=== PATIENT | male | born 1950 | race Hispanic/Latino ===

== ENCOUNTER 2017-04-28 09:48 | Emergency (ER) | payer OTHER ==
[2017-04-28] MEDS ORDERED: ASPIRIN PO ONE (10:08)
[2017-04-28 10:26] LABS: Basophils % (Auto) 0.6 % (0.0-1.8); Eosinophils # (Auto) 0.2 K/mm3 (0.0-0.4); Hematocrit 42.8 % (35.5-45.6); Hemoglobin 14.4 gm/dl (11.8-15.2); Lymphocytes # (Auto) 2.3 K/mm3 (1.2-5.4); Lymphocytes % (Auto) 28.1 % (13.4-35.0); Mean Corpuscular HGB Conc 34 % (32-34); Mean Corpuscular Hemoglobin 30 pg (28-32); Mean Corpuscular Volume 88 fl (84-94); Monocytes # (Auto) 0.6 K/mm3 (0.0-0.8); Monocytes % (Auto) 7.2 % (0.0-7.3); Platelet Count 252 K/mm3 (140-440); Red Blood Count 4.88 M/mm3 (3.65-5.03); Red Cell Distribution Width 14.2 % (13.2-15.2)
--- NOTE | 2017-04-28 10:35 | XRay Report ---
Chest 2 views: History: Shortness of breath. Findings: Normal cardiomediastinal silhouette. Trachea is midline. No consolidation, pneumothorax or pleural effusion. Impression: No acute cardiopulmonary findings.
[2017-04-28 10:50] LABS: Alanine Aminotransferase 27 units/L (7-56); Albumin 4.1 g/dL (3.9-5); BUN/Creatinine Ratio 23; Blood Urea Nitrogen 23 mg/dL (9-20); Calcium 9.3 mg/dL (8.4-10.2); Hemolysis Index 6
[2017-04-28 11:04] LABS: INR 0.89 (0.87-1.13)
[2017-04-28 11:05] LABS: Partial Thromboplastin Time 26.6 Sec. (24.2-36.6)
[2017-04-28] MEDS ORDERED: ATIVAN IV ONE (11:52)
--- NOTE | 2017-04-28 11:57 | Emergency Department Report ---
ED General Adult HPI - General Chief complaint: Chest Pain Stated complaint: CHEST PAIN Time Seen by Provider: 04/28/17 11:11 Source: patient Mode of arrival: Ambulatory Limitations: No Limitations - History of Present Illness Initial comments: Patient presents to emergency department via private vehicle with his daughter and . The patient began to travel from [facility] yesterday and stopped in [facility] overnight to rest. Patient states upon awakening this morning he had sinus congestion along with some tingling of the left side of his face. He also complained of being thirsty as well as having some left upper quadrant abdominal pain. Patient denies isauro chest pain. He says currently he does not have any shortness of breath. -: Gradual Location: head Radiation: non-radiation Severity scale (0 -10): 2 Quality: other (N/A) Consistency: now resolved Improves with: other (N/A) Associated Symptoms: denies other symptoms Treatments Prior to Arrival: Aspirin (650mg) - Related Data Allergies Allergy/AdvReac Type Severity Reaction Status Date / Time bacitracin Allergy Rash Verified 04/28/17 10:02 [From Neosporin ([id number])] neomycin Allergy Rash Verified 04/28/17 10:02 [From Neosporin ([id number])] Penicillins Allergy Unknown Verified 04/28/17 10:02 polymyxin B Allergy Rash Verified 04/28/17 10:02 [From Neosporin ([id number])] ED Review of Systems ROS: Stated complaint: CHEST PAIN Other details as noted in HPI Constitutional: denies: chills, fever Eyes: denies: eye pain, eye discharge, vision change ENT: denies: ear pain, throat pain Respiratory: denies: cough, shortness of breath, wheezing Cardiovascular: denies: chest pain, palpitations Endocrine: no symptoms reported Gastrointestinal: denies: abdominal pain, nausea, diarrhea Genitourinary: denies: urgency, dysuria Musculoskeletal: denies: back pain, joint swelling, arthralgia Skin: denies: rash, lesions Neurological: denies: headache, weakness, paresthesias Psychiatric: denies: anxiety, depression Hematological/Lymphatic: denies: easy bleeding, easy bruising ED Past Medical Hx - Past Medical History Previous Medical History?: Yes Hx of Cancer: Yes (left kidney, colon) Additional medical history: Bronchitis - Surgical History Past Surgical History?: Yes Hx Cholecystectomy: Yes Additional Surgical History: colon resection x 2, Spleenectomy - Social History Smoking Status: Former Smoker Substance Use Type: Alcohol, Prescribed ED Physical Exam - General Limitations: No Limitations General appearance: alert, in no apparent distress - Head Head exam: Present: atraumatic, normocephalic - Eye Eye exam: Present: normal appearance - ENT ENT exam: Present: mucous membranes moist, other (no tenderness to maxillary and frontal sinuses. Transillumination of the frontal sinuses does not show any fluid levels) - Expanded ENT Exam Expanded Throat exam: Positive: normal inspection - Neck Neck exam: Present: normal inspection - Respiratory Respiratory exam: Present: normal lung sounds bilaterally. Absent: respiratory distress - Cardiovascular Cardiovascular Exam: Present: regular rate, normal rhythm. Absent: systolic murmur, diastolic murmur, rubs, gallop - GI/Abdominal GI/Abdominal exam: Present: soft, normal bowel sounds - Rectal Rectal exam: Present: deferred - Extremities Exam Extremities exam: Present: normal inspection - Back Exam Back exam: Present: normal inspection - Neurological Exam Neurological exam: Present: alert, oriented X3 - Psychiatric Psychiatric exam: Present: normal affect, normal mood - Skin Skin exam: Present: warm, dry, intact, normal color. Absent: rash ED Course Vital Signs 04/28/17 04/28/17 04/28/17 10:03 11:00 11:15 Temperature 98.6 F Pulse Rate 90 92 H 88 Respiratory 20 14 12 Rate Blood Pressure 143/78 148/79 148/79 O2 Sat by Pulse 97 97 98 Oximetry 04/28/17 04/28/17 04/28/17 11:30 11:45 12:00 Temperature Pulse Rate 91 H 87 87 Respiratory 11 L 14 14 Rate Blood Pressure 146/89 146/89 150/87 O2 Sat by Pulse 95 95 Oximetry 04/28/17 04/28/17 04/28/17 12:15 12:31 13:00 Temperature Pulse Rate 97 H 90 97 H Respiratory 18 16 16 Rate Blood Pressure 150/87 150/87 132/75 O2 Sat by Pulse 98 97 Oximetry 04/28/17 04/28/17 04/28/17 13:15 13:30 13:45 Temperature Pulse Rate 96 H 94 H 87 Respiratory 15 14 15 Rate Blood Pressure 149/80 160/92 160/92 O2 Sat by Pulse 94 98 93 Oximetry 04/28/17 14:00 Temperature Pulse Rate 84 Respiratory 13 Rate Blood Pressure 140/85 O2 Sat by Pulse 96 Oximetry ED Medical Decision Making - Lab Data Result diagrams: 04/28/17 10:11 04/28/17 10:11 - EKG Data -: EKG Interpreted by Me EKG shows normal: sinus rhythm Rate: normal (93 bpm) - EKG Data Interpretation: no acute changes Critical care attestation.: If time is entered above; I have spent that time in minutes in the direct care of this critically ill patient, excluding procedure time. ED Disposition Clinical Impression: Nonspecific chest pain, Nasal congestion, Shortness of breath Disposition: DC-01 TO HOME OR SELFCARE Is pt being admited?: No Does the pt Need Aspirin: No Condition: Stable Instructions: Chest Pain (ED) Additional Instructions: Patient instructed to return to emergency department to have chest pain or symptoms of a stroke such as slurred speech or facial droop Referrals: LEXI DO MD [Primary Care Provider] - 3-5 Days GUDELIA MONDRAGON MD [Referring] - 3-5 Days
[2017-04-28] MEDS ORDERED: NACL ONE (12:22)
[2017-04-28] MEDS ORDERED: FLONASE NS ONE (12:30)
--- NOTE | 2017-04-28 13:12 | Cat Scan Report ---
CT scan of head without IV contrast: History: Dizziness. Findings: Ventricles are normal in size and midline in location. No evidence of acute ischemia, hemorrhage or mass. No extra axial fluid collection. Normal brainstem and cerebellum. Retention cyst or polyp measuring 2 cm in diameter right sphenoid sinus. Impression: No acute intracranial abnormality. Retention cyst or polyp right sphenoid sinus.
--- NOTE | 2017-04-28 13:15 | Cat Scan Report ---
CTA chest: History: Shortness of breath. Findings: No endobronchial or mediastinal mass. No mediastinal, hilar or axillary adenopathy. No pleural or pericardial effusion. Scarring/discoid atelectasis left lower lobe. Impression: Scarring/discoid atelectasis left lower lobe. No evidence of pulmonary embolism.
[2017-04-28 14:36] VITALS: BP 140/85
== END 2017-04-28 14:43 | disposition home or self-care (01) ==
LOC: ED 09:48
DX: R07.9 Chest pain, unspecified (principal); R09.81 Nasal congestion; R06.02 Shortness of breath; C64.2 Malignant neoplasm of left kidney, except renal pelvis; Z87.891 Personal history of nicotine dependence; Z88.0 Allergy status to penicillin; Z88.8 Allergy status to other drugs, medicaments and biological substances
CPT/HCPCS: 36415; 70450; 71046; 71275; 80053; 83880; 84484; 85025; 85610; 85730; 93005; 93010; 96374; 99284; J2060; Q9967